=== PATIENT | male | born 1950 | race Caucasian/White ===

== ENCOUNTER → 2019-03-01 | Day surgery (SDC) | payer MEDICARE ==
[~2019-03-01] MED LIST: ALLOPURINOL 10100 M1 PO; ANTACID325 MG PO; ASA81BEC PO; CARVEDILOL25 MG PO; COZAAR 50 MG TA50 MG PO; FISH OIL 1,0001 EAC9 PO; FISH OIL 1,001000 M3 PO; FUROSEMIDE 40 M40 MG PO; HUMALOG KW100 UNIT/1 SUBQ; KEFLEX500 M1 PO; NORCO 5-325 TA1 EAC1 PO; RENVELA800 MG PO; SODIUM BICARBO650 M3 PO; VITAMIN D2400 UNIT PO; VITAMIN D3125 MC1 PO
[2019-03-01 09:28] LABS: HEMATOCRIT 31.2 % (42.0-52.0); HEMOGLOBIN 10.8 gm/dL (14.0-18.0); MCH 32.9 pg (26.0-34.0); MCHC 34.7 g/dL (28.0-37.0); MCV 94.9 fL (80.0-100.0); MPV 6.6 fl. (7.2-11.1); RBC 3.28 mil/uL (4.50-6.00); RDW-CV 13.6 % (10.5-14.5); WBC 9.2 thou/uL (4.0-11.0)
[2019-03-01 09:37] LABS: CREATININE 8.2 mg/dL (0.6-1.3); POTASSIUM 4.7 mmol/L (3.5-5.1)
--- NOTE | 2019-03-01 10:29 | EKG ---
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1950 Requested By: Froylan Castillo Order Number: [id number] Reading MD: Dank Black Measurements Intervals Halma Rate: 65 P: 62 SD: 154 QRS: -19 QRSD: 97 T: 63 QT: 432 QTc: 450 Interpretive Statements Sinus rhythm Borderline left axis deviation Low voltage, extremity and precordial leads No previous ECG available for comparison Electronically Signed On 03-01-2019 10:28:46 [employer] by Dank Black [email or web address] <ELECTRONICALLY SIGNED> By: Dank Black MD, [facility] 03/01/19 1028 0913 2 Dank Black MD, FACC /EPI
--- NOTE | 2019-03-05 16:29 | OP ---
[address] [address] OPERATIVE REPORT Name: AYE VIGIL Room: [facility]#: [id number] Admission: 03/01/19 Attend Phys: Froylan Castilol MD Discharge: Date of : 48 Report #: [id number] THIS REPORT FOR: //name// CC: NEHEIMAH BROWNE Physician staff Froylan Castillo DATE OF SERVICE: 03/01/2019 PREOPERATIVE DIAGNOSIS: End-stage renal disease. POSTOPERATIVE DIAGNOSIS: End-stage renal disease. PROCEDURE: Left forearm loop graft using a 4-7 mm tapered Acuseal graft. SURGEON: Froylan Castillo MD FLOUR TESTER: Jasiel Howard. COMPLICATIONS: None. ESTIMATED BLOOD LOSS: 20 mL. SPECIMEN: None. ANESTHESIA: General. INDICATIONS FOR PROCEDURE: The patient is a very pleasant 69-year-old white male with end-stage renal disease, currently on dialysis through a tunneled dialysis catheter. He had a left forearm radiocephalic AV fistula placed at an outside institution. He has undergone multiple procedures to try and get the fistula mature without success. I recently performed a fistulogram with balloon-assisted maturation and angioplasty with the arterial anastomosis. At that time, identified that his radial artery is quite small and unlikely to be adequate to support a fistula with adequate flow volumes. For this reason, I am recommending a forearm loop graft. Informed consent was obtained from the patient with risks including but not limited to bleeding, infection, need for further surgery, pain, , heart attack, stroke, steal syndrome. The patient understood these risks and was agreeable to proceed. DESCRIPTION OF PROCEDURE: The patient was taken to the OR and placed in supine position. After adequate general anesthesia was initiated, timeout was performed. The patient's left arm was prepped and draped in usual sterile fashion. The patient received appropriate preoperative antibiotics. The patient was systemically heparinized throughout the critical portion of procedure. I created a transverse incision in the [place] [address] OPERATIVE REPORT Name: MUSAMARIEJOAQUINA Christian Room: [facility]#: [id number] Admission: 03/01/19 Attend Phys: Froylan Castillo MD Discharge: Date of : 48 Report #: [id number] below the antecubital fossa. Sharp and blunt dissections were carried down to the cephalic vein and the brachial artery. Both these appeared adequate caliber for graft placement. I then tunneled a 4-7 mm tapered Acuseal graft between the vein and the artery in a loop fashion on the forearm. I did create a counter incision distally on the forearm to facilitate this. I made sure there was no tension or kinks or twisting of the graft. I then heparinized the patient. I clamped the brachial artery and created a longitudinal arteriotomy. I spatulated the 4 mm end of the graft. I created an end-to-side anastomosis with the brachial artery and the 4 mm end of the graft using a running 6-0 Prolene suture. At the completion of the repair, there was adequate hemostasis and excellent blood flow into the graft. The patient maintained a radial and ulnar pulses. I then trimmed and spatulated the 7 mm free end of the graft. I created a longitudinal venotomy in the cephalic vein just below the antecubital fossa. I created an end-to-side anastomosis using a running 6-0 Prolene suture. At completion of anastomosis, there was adequate hemostasis and excellent blood flow in the cephalic vein proximally. There was a palpable thrill throughout the AV graft. I irrigated the wound beds with antibiotic saline. I controlled bleeding as needed with electrocautery, ties, clips and Catina, closed the wound in multiple layers using 3-0 Vicryl and 4-0 Monocryl. Incision was dressed with Dermabond. The patient tolerated the procedure well and was taken alert and awake to recovery room in good condition. His hand was pink and warm with good radial and ulnar pulses. There is a palpable thrill in the graft. <ELECTRONICALLY SIGNED> By: Jae Britton DO 03/05/19 1629 1228 [id number] Castillo MD /sirena
== END | disposition home or self-care (01) ==
LOC: M.SUR 06:34
PROVIDERS: Surgery Vascular Surgery
DX: I12.0 Hypertensive chronic kidney disease with stage 5 chronic kidney disease or end stage renal disease (principal); E11.22 Type 2 diabetes mellitus with diabetic chronic kidney disease; N18.6 End stage renal disease; E66.09 Other obesity due to excess calories; G47.30 Sleep apnea, unspecified; Z88.8 Allergy status to other drugs, medicaments and biological substances; Z79.82 Long term (current) use of aspirin; Z79.899 Other long term (current) drug therapy; Z87.891 Personal history of nicotine dependence; Z98.890 Other specified postprocedural states; Z98.41 Cataract extraction status, right eye; Z68.41 Body mass index [BMI] 40.0-44.9, adult; Z83.3 Family history of diabetes mellitus; Z82.49 Family history of ischemic heart disease and other diseases of the circulatory system